=== PATIENT | male | born 1980 | race Caucasian/White ===

== ENCOUNTER → 2018-06-25 | Outpatient (CLI) | payer MEDICARE, OTHER ==
--- NOTE | 2018-06-25 16:08 | XR ---
EXAM TYPE: LUMBAR SPINE X RAY SERIES COMPARISON: NONE HISTORY: Chronic lower back pain TECHNIQUE: 4 views are submitted. FINDINGS: Alignment is anatomic. The pedicles are intact. The transverse processes are intact. There is no s pondylolysis or spondylolisthesis. Mild facet arthropathy L5-S1. Degenerative disc disease at L5-S1. Spurring noted anteriorly at L4. IMPRESSION: 1. Severe degenerative disc disease with facet arthropathy L5-S1.
== END | disposition home or self-care (01) ==
LOC: RADXRYALE 15:22
PROVIDERS: ATTEND Physical Medicine & Rehabilitation
DX: M51.17 Intervertebral disc disorders with radiculopathy, lumbosacral region (principal); M46.97 Unspecified inflammatory spondylopathy, lumbosacral region
CPT/HCPCS: 72110

== ENCOUNTER 2018-08-05 19:03 | Emergency (ER) | payer MEDICARE ==
[2018-08-05 19:35] VITALS: BP 142/88; PULSE 95; RESP 20; TEMP 98.5
[2018-08-05] MEDS ORDERED: SODIUM CHLORIDE 0.9% 1,000 ML IV STA (20:02)
[2018-08-05] MEDS ORDERED: KETOROLAC 30 MG/ML 1 ML VIAL IVP STA (20:02)
[2018-08-05 20:20] LABS: Basophils % (A) 0 %; Eosinophils # (A) 0.2 k/uL (0-0.7); Eosinophils % (A) 1 %; HCT 46.7 % (39.0-53.0); HGB 16.3 gm/dL (13.0-17.5); Lymphocytes # (A) 1.8 k/uL (1.0-4.8); Lymphocytes % (A) 15 %; MCH 30.8 pg (25.0-35.0); MCHC 34.8 g/dL (31.0-37.0); MCV 88.3 fL (80.0-100.0); Mean Platelet Volume 7.2; Monocytes % (A) 9 %; Neutrophils # (A) 8.7 k/uL (1.3-7.7); Neutrophils % (A) 73 %; Platelet Count 175 k/uL (150-450); RBC 5.29 m/uL (4.30-5.90); RDW 12.7 % (11.5-15.5); WBC 11.9 k/uL (3.8-10.6)
[2018-08-05 20:48] LABS: ALT 36 U/L (21-72); AST 21 U/L (17-59); Albumin 3.9 g/dL (3.5-5.0); Alkaline Phosphatase 84 U/L (38-126); Anion Gap 6 mmol/L; Blood Urea Nitrogen 11 mg/dL (9-20); Calcium 9.4 mg/dL (8.4-10.2); Carbon Dioxide 28 mmol/L (22-30); Chloride 104 mmol/L (98-107); Glucose 113 mg/dL (74-99); Potassium 3.8 mmol/L (3.5-5.1); Sodium 138 mmol/L (137-145); Total Bilirubin 0.6 mg/dL (0.2-1.3); Total Protein 6.8 g/dL (6.3-8.2)
[2018-08-05 20:51] LABS: Appearance,Urine Clear (Clear); Bilirubin,Urine Negative (Negative); Blood,Urine Trace (Negative); Color,Urine Yellow; Glucose,Urine (UA) Negative (Negative); Ketones,Urine Negative (Negative); Leukocyte Esterase,Urine Negative (Negative); Mucus,Urine Rare /hpf; Nitrite,Urine Negative (Negative); Protein,Urine Trace (Negative); RBC,Urine 4 /hpf (0-5); Specific Gravity,Urine 1.021 (1.001-1.035); Urobilinogen,Urine <2.0 mg/dL (<2.0)
--- NOTE | 2018-08-05 20:59 | ED ---
Headache HPI - General Chief Complaint: Headache Stated Complaint: Headache, Abd Pain Time Seen by Provider: 08/05/18 19:47 Mode of arrival: ambulatory Limitations: no limitations - History of Present Illness Initial Comments: 38yo male with PMH of chronic low back pain presenting today for cc of headache , sinus pressure, chills, congestion. Pt states that for the past 2 days he has been experiencing the headache, sinus pressure. Pt states that last night he began experiencing sore throat and body aches in addition to congestions and sinus pressure. Pt admits to headache tonight he states that it feels like pressure coming from his sinuses. Pt has been taking alleve to help with body aches and chills. Upon ROS pt stated that yesterday he felt a cramping feeling his bladder, it only occured with urination and he was concerned for a UTI. Pt denies dysuria, hematuria, urgency, frequency or flank pain. Pt denies urinary retention, or incontinence. Patient denies any recent shortness of breath, chest pain, back pain, abdominal pain, nausea or vomiting, numbness or tingling , constipation or diarrhea, headaches or visual changes, or any other complaints. Upon arrival pt appears well. VS stable pt is afebrile. - Related Data Previous Rx's Medication Instructions Recorded Amoxic-Pot Clav 875-125Mg 1 tab PO Q12HR 7 Days #14 tablet 08/05/18 [Augmentin 875-125] Loratadine [Claritin] 10 mg PO DAILY 7 Days #7 tab 08/05/18 Allergies Allergy/AdvReac Type Severity Reaction Status Date / Time No Known Allergies Allergy Verified 08/05/18 19:34 Review of Systems ROS Statement: Those systems with pertinent positive or pertinent negative responses have been documented in the HPI. ROS Other: All systems not noted in ROS Statement are negative. Constitutional: Reports: chills Eyes: Denies: vision change ENT: Reports: throat pain. Denies: ear pain Respiratory: Denies: cough, dyspnea, wheezes, hemoptysis, stridor Cardiovascular: Denies: chest pain, palpitations, dyspnea on exertion Gastrointestinal: Denies: abdominal pain, nausea, vomiting, diarrhea, constipation Genitourinary: Reports: other (bladder cramping). Denies: urgency, dysuria, frequency, hematuria, discharge Skin: Denies: rash, lesions Neurological: Reports: headache. Denies: weakness, numbness, paresthesias, confusion, abnormal gait Past Medical History Additional Past Medical History / Comment(s): back pain History of Any Multi-Drug Resistant Organisms: None Reported Past Surgical History: Back Surgery, Orthopedic Surgery Past Psychological History: No Psychological Hx Reported Smoking Status: Former smoker Past Alcohol Use History: Occasional Past Drug Use History: None Reported General Exam - General Exam Comments Initial Comments: General: The patient is awake and alert, in no distress, and does not appear acutely ill. Eye: Pupils are equal, round and reactive to light, extra-ocular movements are intact. No nystagmus. There is normal conjunctiva bilaterally. No signs of icterus. Ears, nose, mouth and throat: There are moist mucous membranes and no oral lesions. Oropharynx is mildly erythematous. Post nasal drip. Pain to palpation of the maxillary sinuses. Neck: The neck is supple, there is no tenderness or JVD. No anterior cervical lymphadenopathy Cardiovascular: There is a regular rate and rhythm. No murmur, rub or gallop is appreciated. Respiratory: Lungs are clear to auscultation, respirations are non-labored, breath sounds are equal. No wheezes, stridor, rales, or rhonchi. Gastrointestinal: No noted diaphoresis, jaundice, pallor, protecting postures or squirming. Symmetrical pigmentation of abdomen without signs of inflammation, scars, or striae. Umbilicus mildline, inverted without swelling. No dilated veins. Abdomen contour obese, no noted abdominal distention. No visible masses. No peristalsis, aortic pulsations, or ventral hernia. Bowel sounds audible in all 4 quadrants, unremarkable. No tenderness to light or deep palpation in all quadrants. Pressure to palpation over superior bladder margin. Liver edge, not palpable. Spleen edge, right and left kidney not palpable. Special Testing: Negative Rovsing, McBurney, Sherman, Negative Heel Jar test/shaun sign. No CVA tenderness. Digital rectal exam deferred. Negative sanders turners or cullens sign Musculoskeletal: Normal ROM, no tenderness. Strength 5/5. Sensation intact. Radial pulses equal bilaterally 2+. Neurological: A&O x 3. CN II-XII intact, There are no obvious motor or sensory deficits. Coordination appears grossly intact. Speech is normal. Skin: Skin is warm and dry and no rashes or lesions are noted. Psychiatric: Cooperative, appropriate mood & affect, normal judgment. Limitations: no limitations Course Vital Signs 08/05/18 19:32 Temperature 98.5 F Pulse Rate 95 Respiratory 20 Rate Blood Pressure 142/88 O2 Sat by Pulse 98 Oximetry Medical Decision Making - Medical Decision Making Patient stated headache was relieved with Toradol. No urinary retention noted on post residual void. UA as noted above, mild hematuria (no gross findings). No stone or obstruction on bladder US, pt denied flank pain no CVA tendernesss. Pt URI like symptoms and PE findings appear consistent with sinusitis, negative influenza testing. Pt started on Augmentin. Pt refused imaging of abdomen stating he just underwent a lot of radiation from his lower back imaging, pt denies loss of bowel bladder control, LE weakness/sensation loss concerning for cauda equina. Given pt bladder symptoms/UA findings, I suggested urology f/u. Pt verbalized understanding. Case discussed with Dr. Sosa who revealed all laboratory findings. At this time we feel pt is stable for d/c with primary and urology f/u. Patient verbalized understanding and agreed with plan. Return parameters discussed in detail patient who verbalized understanding. Pt discharged in stable condition. - Lab Data Result diagrams: 08/05/18 20:05 08/05/18 20:05 Lab Results 08/05/18 08/05/18 08/05/18 Range/Units 20:05 20:05 20:05 WBC 11.9 H (3.8-10.6) k/uL RBC 5.29 (4.30-5.90) m/uL Hgb 16.3 (13.0-17.5) gm/dL Hct 46.7 (39.0-53.0) % MCV 88.3 (80.0-100.0) fL MCH 30.8 (25.0-35.0) pg MCHC 34.8 (31.0-37.0) g/dL RDW 12.7 (11.5-15.5) % Plt Count 175 (150-450) k/uL Neutrophils % 73 % Lymphocytes % 15 % Monocytes % 9 % Eosinophils % 1 % Basophils % 0 % Neutrophils # 8.7 H (1.3-7.7) k/uL Lymphocytes # 1.8 (1.0-4.8) k/uL Monocytes # 1.0 (0-1.0) k/uL Eosinophils # 0.2 (0-0.7) k/uL Basophils # 0.0 (0-0.2) k/uL Sodium 138 (137-145) mmol/L Potassium 3.8 (3.5-5.1) mmol/L Chloride 104 (98-107) mmol/L Carbon Dioxide 28 (22-30) mmol/L Anion Gap 6 mmol/L BUN 11 (9-20) mg/dL Creatinine 1.11 (0.66-1.25) mg/dL Est GFR (CKD-EPI)AfAm >90 (>60 ml/min/1.73 sqM) Est GFR (CKD-EPI)NonAf 83 (>60 ml/min/1.73 sqM) Glucose 113 H (74-99) mg/dL Calcium 9.4 (8.4-10.2) mg/dL Total Bilirubin 0.6 (0.2-1.3) mg/dL AST 21 (17-59) U/L ALT 36 (21-72) U/L Alkaline Phosphatase 84 (38-126) U/L Total Protein 6.8 (6.3-8.2) g/dL Albumin 3.9 (3.5-5.0) g/dL Urine Color Urine Appearance (Clear) Urine pH (5.0-8.0) Ur Specific Curran (1.001-1.035) Urine Protein (Negative) Urine Glucose (UA) (Negative) Urine Ketones (Negative) Urine Blood (Negative) Urine Nitrite (Negative) Urine Bilirubin (Negative) Urine Urobilinogen (<2.0) mg/dL Ur Leukocyte Esterase (Negative) Urine RBC (0-5) /hpf Urine WBC (0-5) /hpf Urine Mucus (None) /hpf Influenza Type A RNA Not Detected (Not Detectd) Influenza Type B (PCR) Not Detected (Not Detectd) 08/05/18 Range/Units 20:05 WBC (3.8-10.6) k/uL RBC (4.30-5.90) m/uL Hgb (13.0-17.5) gm/dL Hct (39.0-53.0) % MCV (80.0-100.0) fL MCH (25.0-35.0) pg MCHC (31.0-37.0) g/dL RDW (11.5-15.5) % Plt Count (150-450) k/uL Neutrophils % % Lymphocytes % % Monocytes % % Eosinophils % % Basophils % % Neutrophils # (1.3-7.7) k/uL Lymphocytes # (1.0-4.8) k/uL Monocytes # (0-1.0) k/uL Eosinophils # (0-0.7) k/uL Basophils # (0-0.2) k/uL Sodium (137-145) mmol/L Potassium (3.5-5.1) mmol/L Chloride (98-107) mmol/L Carbon Dioxide (22-30) mmol/L Anion Gap mmol/L BUN (9-20) mg/dL Creatinine (0.66-1.25) mg/dL Est GFR (CKD-EPI)AfAm (>60 ml/min/1.73 sqM) Est GFR (CKD-EPI)NonAf (>60 ml/min/1.73 sqM) Glucose (74-99) mg/dL Calcium (8.4-10.2) mg/dL Total Bilirubin (0.2-1.3) mg/dL AST (17-59) U/L ALT (21-72) U/L Alkaline Phosphatase (38-126) U/L Total Protein (6.3-8.2) g/dL Albumin (3.5-5.0) g/dL Urine Color Yellow Urine Appearance Clear (Clear) Urine pH 6.0 (5.0-8.0) Ur Specific Curran 1.021 (1.001-1.035) Urine Protein Trace H (Negative) Urine Glucose (UA) Negative (Negative) Urine Ketones Negative (Negative) Urine Blood Trace H (Negative) Urine Nitrite Negative (Negative) Urine Bilirubin Negative (Negative) Urine Urobilinogen <2.0 (<2.0) mg/dL Ur Leukocyte Esterase Negative (Negative) Urine RBC 4 (0-5) /hpf Urine WBC <1 (0-5) /hpf Urine Mucus Rare H (None) /hpf Influenza Type A RNA (Not Detectd) Influenza Type B (PCR) (Not Detectd) Disposition Clinical Impression: Sinusitis, Hematuria Disposition: HOME SELF-CARE Condition: Good Additional Instructions: Please use medication as discussed. Please follow-up with family doctor in the next week with urology. Please follow-up with primary care provider in next 1-2 days. Please return to emergency room if the symptoms increase or worsen or for any other concerns, as discussed. Prescriptions: Amoxic-Pot Clav 875-125Mg [Augmentin 875-125] 1 tab PO Q12HR 7 Days #14 tablet Loratadine [Claritin] 10 mg PO DAILY 7 Days #7 tab Is patient prescribed a controlled substance at d/c from ED?: No Referrals: Yamini Quiros MD [Primary Care Provider] - 1-2 days Prakash Luna MD [STAFF PHYSICIAN] - 1-2 days Time of Disposition: 21:49
--- NOTE | 2018-08-05 22:05 | US ---
EXAMINATION TYPE: US bladder DATE OF EXAM: 08/05/2018 COMPARISON: NONE CLINICAL HISTORY: Pain. Pain and cramping in bladder area. EXAM MEASUREMENTS: Post Void Residual Volume: 0 mL Bladder measurements pre void- 5.8 x 3.8 x 6.2 cm= 71 mL Color Doppler performed to assess ureteral jets. Bilateral Jets seen: No Normal Post Void Residual (less than 50ml): Yes empty. Patient emptied bladder post void 0 mL. IMPRESSION: There is normal bladder emptying. No bladder mass seen. No ureteral jets were seen tona g the exam.
[2018-08-06 15:44] LABS: C. trachomatis,PCR Negative (Neg,Equiv); Chlamydia trachomatis Source Urine
[2018-08-07 13:01] LABS: N. gonorrhoeae,PCR Negative (Neg,Equiv); Neisseria Source Urine
== END 2018-08-05 22:15 | disposition home or self-care (01) ==
LOC: EC 19:03
DX: J32.9 Chronic sinusitis, unspecified (principal); R31.9 Hematuria, unspecified; L81.9 Disorder of pigmentation, unspecified; R68.83 Chills (without fever); R52 Pain, unspecified; Z87.891 Personal history of nicotine dependence
CPT/HCPCS: 36415; 80053; 85025; 81001; 87491; 87591; 87086; 87502; 76857; 99284; 96374; 96361 ×2; J1885